=== PATIENT | female | born 1940 | race Two or more races ===

== ENCOUNTER 2022-09-07 14:58 | Emergency (ER) | payer OTHER ==
[~2022-09-07] VITALS: Ht 152.4 cm; Wt 59.0 kg
[2022-09-07] MEDS ORDERED: TOPROL XL50 M1 PO (15:12)
[2022-09-07] MEDS ORDERED: ATACAND32 MG PO (15:12)
[2022-09-07] MEDS ORDERED: GLUMETZA1000 MG PO (15:12)
[2022-09-07] MEDS ORDERED: GLIPIZIDE XL2.5 MG (15:13)
== END 2022-09-08 01:42 | disposition home or self-care (01) ==
LOC: ER 14:58
DX: N39.0 Urinary tract infection, site not specified (principal); Z88.0 Allergy status to penicillin; I10 Essential (primary) hypertension; E11.9 Type 2 diabetes mellitus without complications; Z79.84 Long term (current) use of oral hypoglycemic drugs; K57.30 Diverticulosis of large intestine without perforation or abscess without bleeding; N81.6 Rectocele; N13.30 Unspecified hydronephrosis